=== PATIENT | male | born 1985 | race Caucasian/White ===

== ENCOUNTER 2016-06-10 17:43 | Inpatient (IN) | payer OTHER ==
[~2016-06-10] VITALS: Ht 180.3 cm; Wt 116.1 kg
[~2016-06-10 17:43] MED LIST: ARIP400P IM; BACT800T5 PO; CEPH500C3 PO; HYDR-3533 PO; IBUP800T23 PO; TRIH5 PO
[2016-06-10 17:50] VITALS: BP 179/99; PULSE 83; RESP 20; TEMP 97.8; O2SAT 93
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
[2016-06-10] MEDS ORDERED: OLANZapine IM 10 MG VIAL IM ONE (18:45)
[2016-06-10 22:20] VITALS: BP 143/84; PULSE 90; RESP 18; TEMP 97.6; O2SAT 99
[2016-06-11] MEDS ORDERED: LORazepam 2 MG/ML VIAL ONE
[2016-06-11] MEDS ORDERED: LORazepam 2 MG/ML VIAL IV ONE (01:00)
[2016-06-11] MEDS ORDERED: ZIPRASIDONE MESYLATE 20 MG VIAL IM ONE (01:00)
[2016-06-11] MEDS ORDERED: OLANZapine IM 10 MG VIAL IM STA (01:36)
[2016-06-11 02:13] VITALS: BP 158/67; PULSE 106; RESP 20; O2SAT 97
[2016-06-11 06:07] VITALS: BP 161/79; PULSE 104; RESP 19; O2SAT 97
[2016-06-11 22:12] VITALS: RESP 20
[2016-06-12 02:11] VITALS: RESP 20
--- NOTE | 2016-06-12 07:40 | HHI.HP ---
Provisional Diagnosis Admission Date Jun 11, 2016 at 17:36 [place] I. 1. Schizophrenia, paranoid type, severe acute exacerbation 2. History of polysubstance abuse Cal[place]oun II. Deferred Cal[place]oun V. GAF is 15 presently Certification of Person's Competence To Provide Express and Informed Consent I have personally examined Houston Dunn , a person being served at [facility] on, Jun 12, 2016 07:40. Express and informed consent means consent voluntarily given in writing, by a competent person, after sufficient explanation and disclosure of the subject matter involved to enable the person to make a knowing and willful decision without any element of force, fraud, deceit, duress, or other form of constraint or coercion. This person is 18 years of age or older, is not now known to be incompetent to consent to treatment with a guardian advocate, and does not have a health care surrogate or proxy currently making medical treatment decisions. I have found this person to be one of the following: [] Competent to provide express and informed consent, as defined above, for voluntary admission to this facility and is competent to provide express and informed consent for treatment. He/she has the consistent capacity to make well reasoned, willful, and knowing decisions concerning his or her medical or mental health treatment. The person fully and consistently understands the purpose of the admission for examination/placement and is fully capable of personally exercising all rights assured [place] [x] Incompetent to provide express and informed consent to voluntary admission, and this is incompetent to provide express and informed consent to treatment. The person must be transferred to involuntary status and a petition for a guardian advocate filed with the Circuit Court. [] Refusing to provide express and informed consent to voluntary admission but is competent to provide express and informed consent for treatment. The person must be discharged or transferred to involuntary status. Form shall be completed within 24 hours of a person's arrival at the receiving facility and filed in the clinical record of each person: 1. Admitted on a voluntary basis 2. Permitted to provide express and informed consent to his/her own treatment 3. Allowed to transfer from involuntary to voluntary status 4. Prior to permitting a person to consent to his or her own treatment after having been previously found incompetent to consent to treatment. History of Present Illness Capacity: Lacks Capacity HPI Mr. Dunn is a 30-year-old male with a history of paranoid schizophrenia and substance use issues who was brought into the emergency department under an ex parte order signed by Judge Kemp and sought by patient's mother, Ms. Conklin. I have reviewed the allegations in the ex parte order in some detail, and include allegations of erratic behavior, threatening behavior and unwillingness to participate in treatment. I have reviewed patient 's electronic medical record from here at [facility] fairly extensively including patient's hospitalizations under Dr. Chua and Dr. Mack. I've additionally reviewed Dr. Chua's outpatient treatment records as the patient followed in his clinic at least until January of last year. Patient seen and examined. Chart reviewed. Case discussed with nurse in the J- pod. Since being in the J-pod the patient has refused physical examination and threatened the ED provider who attempted to obtain one. He has refused laboratories. He has begun to refuse vital signs and the last set that we have are from yesterday morning. On my examination today, the patient is extremely irritable and threatening. He is quite paranoid and internally stimulated. He says that he is in the hospital because "I didn't follow my mom's rules." When I ask what rules he has transgressed, he lindsey, "I don't know, it's retarded as fuck!" I endeavor to discuss with him the specific allegations in the ex parte, but the patient is having none of it saying "I don't care" what is in the ex parte before launching into a series of expletives. Despite a lengthy history of mental illness, his insight into this issue is poor, and he says, "I' m not doing that [i.e. getting treatment for mental illness] because I don't want to and I don't have to." He does not verbalize any SI or HI but is quite threatening as I said and is unreliable to contract for safety in his present state. Psychiatric interview is limited because of his degree of psychiatric impairment. I did endeavor to obtain past psychiatric, family, chemical dependency and social history from the patient, but he is likely an unreliable historian. Past psychiatric history: Patient is in denial of having any sort of mental illness. He does admit that he has been hospitalized here in the past and also at [facility]. He reports 1 prior suicide attempt "years ago, but I'm better now." Family history: Patient denies any family history of mental illness. Chemical dependency history: Patient denies any abuse of drugs or alcohol, although he does have a history of substance use issues and I see that his urine toxicologies in the past have been positive for several different substances. Social history: Patient reports that he lives with his sister. He is single and has no children. I did endeavor to obtain further social history but at this point the patient becomes quite threatening and I have to conclude the interview for safety. I have obtained collateral information from patient's mother, Ms. Conklin, over the phone. She reports that the patient has recently been quite aggressive and "kicked in every door in his home." She maintains that when he is properly medicated "he's not like that." She alleges that he has been threatening to her and she is scared of him. She reports that once he is restarted on medications he rapidly improves. She does note that he has been in the involuntary outpatient commitment program in the past, but mother found this actively counterproductive as the patient would disrespect the county judge, get sent to halfway, assault someone there and end up in retirement. She notes that he is on SXN from an outpatient provider for maintenance treatment and says that this medication was sent in with the patient with the police, but nursing staff in the J-Pod inform me that this is not in with patient's belongings. Patient's mother is willing to act as patient's healthcare surrogate. I have a lengthy discussion with her in this capacity about patient's treatment plan. She notes that he has done well with Invega Sustenna in the past but that this has caused some EPS and ED. Abilify Maintena, his most recent medication, has apparently not been as effective as Invega and in some respects has made the patient worse. He has never been on Haldol Dec or Prolixin Dec so far as mother knows. After discussing patient's treatment options, we settle on resuming Invega Sustenna since this agent has proven efficacy in this patient and the side effects it does cause can be easily managed and it does not require oral supplementation in a patient unlikely to comply with such. I explain that the patient has been refusing labs, vitals and exam, and patient's mother agrees with temporarily restraining the patient if necessary to obtain these. Review of Systems ROS Limitations: Uncooperative, Psychotic, Poor Historian Other Unable to obtain; patient uncooperative. Past Psych History Psychological trauma history Unable to obtain, patient uncooperative Violence risk - others (6 mos) Significantly elevated. Patient has threatened violence in the ED and is quite irritable and psychotic. Violence risk - self (6 mos) Indeterminate. Substance Abuse History Drugs/Alcohol past 12 months Patient denies recent use but has a history of polysubstance abuse. Past Family Social History Coded Allergies: Benadryl (Verified Adverse Reaction, Unknown, 06/12/16) Per mother, patient has a paradoxical effect with Benadryl. Past Medical History See electronic medical record No Active Prescriptions or Reported Meds Unable to obtain from patient. Patient's Strengths (min. 2) In a monitored setting. Supportive mother. Physical Exam Patient has refused physical examination and threatened violence on provider attempting to perform one. He appears to be in no acute physical distress at the time of my evaluation. No overt signs of withdrawal noted. No other motoric abnormalities noted. Vital Signs Patient is refusing vitals. Most recent set of vitals obtained yesterday morning. Lab Results Patient is refusing laboratories Mental Status Examination Patient is in hospital gown. He is disheveled. He is awake and alert, although he does feign sleep at times, and is oriented to person and hospital. No abnormal motor movements noted. Speech is terse and angry. Language and fund of knowledge are difficult to assess given his degree of psychiatric decompensation. Mood and affect are restricted and dysphoric. Thought process perseverative on discharge, and I do suspect some degree of underlying thought disorder. Paranoia is present. The patient appears internally stimulated. He has threatened violence in the ED but has not described any suicidal ideation. Insight and judgment are presently poor. Assessment & Plan Problem List: (1) Schizophrenia ICD Code: F20.9 (2) History of substance abuse ICD Code: Z87.898 Assessment & Plan This is a 30-year-old male with psychiatric history as detailed above who presents under an ex parte order initiated by his mother. On my examination today, the patient is psychotic, irritable and threatening. He apparently has been nonadherent with his antipsychotic medications. Given his severe acute decompensation of his paranoid schizophrenia, the patient requires psychiatric hospitalization at this time for safety, observation and stabilization. Admit inpatient. Involuntary status. I completed first opinion. Consult for second opinion. Patient's mother to act as healthcare surrogate, and I have completed the paperwork for this. Request guardian advocate. I have instructed the nursing staff and the J-pod to endeavor to obtain laboratories from the patient voluntarily one more time. If he refuses, I have instructed them to temporarily restrain him for the purpose of obtaining these as well as vital signs and physical examination. Once laboratories have been obtained and resulted, we will begin active treatment of patient's illness. Given prior good response and tolerability to Invega Sustenna, I will plan to resume this agent at a dose appropriate to his renal and hepatic function. Ativan as needed for agitation, Cogentin as needed for EPS, Benadryl as needed for sleep. Monitor for any withdrawal. If SXN can be located (apparently did not arrive with him), will plan to resume this. Vitals every shift. Violent/assaultive and elopement precautions. Counselor to see. Disposition planning. Estimated length of stay: 7-9 days. Discharge Planning Pending psychiatric stabilization Request HC Surrog/Guard Advoc?: Yes Problem Qualifiers (1) Schizophrenia: Qualified Code: F20.0 - Paranoid schizophrenia Dipak Oliveira MD Jun 12, 2016 07:40
[2016-06-12] MEDS ORDERED: diphenhydrAMINE HCL 50 MG CAP PO PRN (08:00)
[2016-06-12] MEDS ORDERED: BENZTROPINE MESYLATE 1 MG TAB PO PRN (08:00)
[2016-06-12] MEDS ORDERED: BENZTROPINE MESYLATE 2 MG/2 ML VIAL IM PRN (08:00)
[2016-06-12] MEDS ORDERED: HALOPERIDOL LACTATE 5 MG/ML AMP ONE (09:50)
[2016-06-12] MEDS ORDERED: diphenhydrAMINE HCL 50 MG/ML VIAL IM ONE (10:00)
[2016-06-12] MEDS ORDERED: HALOPERIDOL LACTATE 5 MG/ML AMP IM ONE (10:00)
[2016-06-12] MEDS ORDERED: LORazepam 2 MG/ML VIAL IM ONE (10:00)
[2016-06-12 12:13] LABS: AMPHETAMINE, URINE NEG (NEG); BARBITURATES, URINE NEG (NEG); COCAINE, URINE NEG (NEG)
[2016-06-12 12:20] LABS: AUTOMATED NEUTROPHIL # 6.3 TH/MM3 (1.8-7.7); BASOPHIL % 0.3 % (0.0-2.0); EOSINOPHIL # 0.3 TH/MM3 (0-0.4); EOSINOPHIL % 2.4 % (0.0-4.0); HEMATOCRIT 55.2 % (39.0-51.0); HEMO FLAGS DIFF FINAL; LYMPH % 26.9 % (9.0-44.0); LYMPHOCYTE # 2.9 TH/MM3 (1.0-4.8); MEAN CELL VOLUME 86.6 FL (80.0-100.0); MEAN CORPUSCULAR HEMOGLOBIN 29.1 PG (27.0-34.0); MEAN CORPUSCULAR HGB CONC 33.6 % (32.0-36.0); MONO % 11.1 % (0.0-8.0); NEUT % 59.3 % (16.0-70.0); PLATELET COUNT 237 TH/MM3 (150-450); RED BLOOD COUNT 6.37 MIL/MM3 (4.50-5.90); RED CELL DISTRIBUTION WIDTH 13.7 % (11.6-17.2); WHITE BLOOD COUNT 10.6 TH/MM3 (4.0-11.0)
[2016-06-12 12:27] VITALS: BP 166/74; PULSE 108; RESP 24; TEMP 98.5; O2SAT 96
[2016-06-12 12:32] LABS: ALT (GPT) 30 U/L (12-78); ANION GAP 14 MEQ/L (5-15); AST (GOT) 25 U/L (15-37); BICARBONATE 24.3 MEQ/L (21.0-32.0); BLOOD UREA NITROGEN 12 MG/DL (7-18); CHLORIDE 104 MEQ/L (98-107); GLOMERULAR FILTRATION RATE 61 ML/MIN (>89); POTASSIUM 4.6 MEQ/L (3.5-5.1); SODIUM (NA) 142 MEQ/L (136-145)
[2016-06-12 12:34] LABS: ALKALINE PHOSPHATASE 119 U/L (45-117); TOTAL BILIRUBIN ADULT 0.3 MG/DL (0.2-1.0)
[2016-06-12 12:40] LABS: HDL CHOLESTEROL 31.5 MG/DL (40.0-60.0); LDL CHOLESTEROL 87 MG/DL (0-99)
--- NOTE | 2016-06-12 13:22 | PD ---
Physical Exam Date Seen by Provider: Jun 12, 2016 Time Seen by Provider: 13:19 Narrative 30-year-old male that presents to the ED here for evaluation of [place] act. Please refer to prior provider. I was asked by ED psych nurse to do a physical exam on the patient is apparently this was not done at the initial time of presentation secondary to patient's mental status. At this time patient was cooperative with me and did let me examine him. Patient already had blood work that was unremarkable. Patient was medically clear. GENERAL: SKIN: Warm and dry. HEAD: Atraumatic. Normocephalic. EYES: Pupils equal and round. No scleral icterus. No injection or drainage. ENT: No nasal bleeding or discharge. Mucous membranes pink and moist. Tongue is midline. No uvula deviation. NECK: Trachea midline. No JVD. CARDIOVASCULAR: Regular rate and rhythm. No murmurs, S3, S4. RESPIRATORY: No accessory muscle use. Clear to auscultation. Breath sounds equal bilaterally. GASTROINTESTINAL: Abdomen soft, non-tender, nondistended. Hepatic and splenic margins not palpable. MUSCULOSKELETAL: Extremities without clubbing, cyanosis, or edema. No obvious deformities. Full range of motion of the upper and lower extremities bilaterally. 2+ pulses bilaterally. NEUROLOGICAL: Awake and alert. No obvious cranial nerve deficits. Motor grossly within normal limits. Five out of 5 muscle strength in the arms and legs. Normal speech. PSYCHIATRIC: Appropriate mood and affect; insight and judgment normal. Data Data Last Documented VS Vital Signs Date Time Temp Pulse Resp B/P Pulse Ox O2 Delivery O2 Flow Rate FiO2 06/11/16 06:07 104 19 161/79 97 Room Air 06/10/16 22:20 97.6 Orders Psych Screen (06/10/16 18:01) Olanzapine Inj (Zyprexa Inj) (06/10/16 18:45) Lorazepam Inj (Ativan Inj) (06/11/16 00:00) Lorazepam Inj (Ativan Inj) (06/11/16 01:00) Olanzapine Inj (Zyprexa Inj) (06/11/16 01:36) Diet Regular Basic (06/11/16 Breakfast) Diet Regular Basic (06/11/16 Lunch) Diet Regular Basic (06/11/16 Dinner) Admit Order (Ed Use Only) (06/11/16 17:31) [facility] Medical Record Reviewed: Yes Supervised Visit with CHANG: No Narrative Course 30-year-old male that presents to the ED for evaluation of schizophrenia. I was asked by my ED psych nurse to do a physical evaluation as apparently he did not allow the previous provider. Patient did allow me to the physical exam. On physical exam patient appears to be no distress. Okay to be evaluated by psychiatry. Patient was medically clear. Labs were essentially unremarkable. Diagnosis Primary Impression: Schizophrenia Qualified Code: F20.0 - Paranoid schizophrenia Scripts No Active Prescriptions or Reported Meds Marcell Christie Jun 12, 2016 13:21
--- NOTE | 2016-06-12 13:42 | HHI.PYPN ---
Subjective Remarks History of Present Illness This note serves as a face to face intervention/ note for restraints HPI Mr. Dunn is a 30-year-old male with a history of paranoid schizophrenia and substance use issues who was brought into the emergency department under an ex parte order signed by Judge Kemp and sought by patient's mother, Ms. Conklin. Patient was seen and evaluated earlier today by Dr. Dipak Oliveira who recommended inpatient psychiatric hospitalization Patient has been refusing labs as well as all care. He has been ordered initial labs for admission. Patient became agitated and refusing laboratory work. He was attempting to barricade self in his room with the mattress and was threatening towards staff. Required restraints in order to prevent harm to self and others. Review of Systems ROS Limitations: Combative Objective Alert: Yes [place]: Person (ox4) Mood: Agitated Affect: Other (congruent ) Memory Intact: Comment (not tetseted) Hallucinations: Other (unable to assess) Delusions: Yes Delusion Type: Paranoid Suicidal: Ideation (unable to assess) Homicidal: Ideation (unable to assess) Insight/Judgement Poor. Impaired Labs Test 06/12/16 06/12/16 11:40 11:50 White Blood Count 10.6 TH/MM3 Red Blood Count 6.37 MIL/MM3 Hemoglobin 18.6 GM/DL Hematocrit 55.2 % Mean Corpuscular Volume 86.6 FL Mean Corpuscular Hemoglobin 29.1 PG Mean Corpuscular Hemoglobin 33.6 % Concent Red Cell Distribution Width 13.7 % Platelet Count 237 TH/MM3 Mean Platelet Volume 9.9 FL Neutrophils (%) (Auto) 59.3 % Lymphocytes (%) (Auto) 26.9 % Monocytes (%) (Auto) 11.1 % Eosinophils (%) (Auto) 2.4 % Basophils (%) (Auto) 0.3 % Neutrophils # (Auto) 6.3 TH/MM3 Lymphocytes # (Auto) 2.9 TH/MM3 Monocytes # (Auto) 1.2 TH/MM3 Eosinophils # (Auto) 0.3 TH/MM3 Basophils # (Auto) 0.0 TH/MM3 CBC Comment DIFF FINAL Differential Comment Sodium Level 142 MEQ/L Potassium Level 4.6 MEQ/L Chloride Level 104 MEQ/L Carbon Dioxide Level 24.3 MEQ/L Anion Gap 14 MEQ/L Blood Urea Nitrogen 12 MG/DL Creatinine 1.38 MG/DL Estimat Glomerular Filtration 61 ML/MIN Rate Random Glucose 130 MG/DL Calcium Level 10.0 MG/DL Total Bilirubin 0.3 MG/DL Aspartate Amino Transf 25 U/L (AST/SGOT) Alanine Aminotransferase 30 U/L (ALT/SGPT) Alkaline Phosphatase 119 U/L Total Protein 8.4 GM/DL Albumin 4.1 GM/DL Triglycerides Level 362 MG/DL Cholesterol Level 191 MG/DL LDL Cholesterol 87 MG/DL HDL Cholesterol 31.5 MG/DL Cholesterol/HDL Ratio 6.06 RATIO Thyroid Stimulating Hormone 1.630 uIU/ML 3rd Gen Ethyl Alcohol Level 5 MG/DL Urine Opiates Screen NEG Urine Barbiturates Screen NEG Urine Amphetamines Screen NEG Urine Benzodiazepines Screen NEG Urine Cocaine Screen NEG Urine Cannabinoids Screen NEG Vitals/IOs Vital Signs Date Time Temp Pulse Resp B/P Pulse Ox O2 Delivery O2 Flow Rate FiO2 06/12/16 12:27 98.5 108 24 166/74 96 06/12/16 02:11 Room Air Assessment & Plan Problem List: (1) Schizophrenia Assessment & Plan: at this time patient presents danger to self or others. ICD Code: F20.9 (2) History of substance abuse Assessment & Plan: Patient at this time requires restraints to prevent injury to self or others. ICD Code: Z87.898 Assessment & Plan Estimated LOS: days Justification for Cont. Inpt. Lack of control, psychosis, threat and danger to others Request HC Surrog/Guard Advoc?: Yes Problem Qualifiers (1) Schizophrenia: Qualified Code: F20.0 - Paranoid schizophrenia Shannon Sanderson Jun 12, 2016 13:42
[2016-06-12 13:52] VITALS: BP 137/97; PULSE 106; RESP 20; O2SAT 97
[2016-06-12] MEDS ORDERED: MAGNESIUM HYDROXIDE SUSP 30 ML CUP PO PRN (15:00)
[2016-06-12] MEDS ORDERED: PALIPERIDONE PALMITATE 156 MG/ML SYRINGE IM ONE (15:00)
[2016-06-12] MEDS ORDERED: ALUMINUM/MAGNESIUM/SIMETH 30 ML CUP PO PRN (15:00)
[2016-06-12] MEDS ORDERED: ACETAMINOPHEN 325 MG TAB PO PRN (15:00)
[2016-06-12] MEDS ORDERED: HALOPERIDOL LACTATE 5 MG/ML AMP IM PRN (15:00)
[2016-06-12] MEDS: LORazepam 2 MG/ML VIAL IM PRN (15:56)
[2016-06-12 15:59] VITALS: BP 148/76; PULSE 120; RESP 16; TEMP 98.8; O2SAT 96
[2016-06-12 16:04] LABS: HEMOGLOBIN A1a 1.3 %; HEMOGLOBIN Ao 84.7 %; HEMOGLOBIN LA1C 2.2 %; HEMOGLOBIN P3 3.7 %
[2016-06-12 16:05] VITALS: BP 148/76; PULSE 110; RESP 16; TEMP 98.8
[2016-06-12] MEDS: LORazepam 2 MG TAB PO PRN (20:36)
[2016-06-12] MEDS: HALOPERIDOL 5 MG TAB PO PRN (20:36)
[2016-06-12] MEDS: OXYMETAZOLINE HCL 0.05% 15 ML NASAL SPRAY NASAL SCH (23:00)
[2016-06-13] MEDS: LORazepam 2 MG/ML VIAL IM PRN (00:49)
[2016-06-13 06:03] VITALS: BP 149/86; PULSE 109; RESP 16; TEMP 97.9; O2SAT 95
[2016-06-13 07:36] LABS: BICARBONATE 28.3 MEQ/L (21.0-32.0); POTASSIUM 4.2 MEQ/L (3.5-5.1)
[2016-06-13] MEDS: NICOTINE 21 MG/24 HR PATCH T-DERMAL SCH (09:00)
[2016-06-13] MEDS: REMOVE OLD PATCH T-DERMAL SCH (09:00)
[2016-06-13] MEDS: OXYMETAZOLINE HCL 0.05% 15 ML NASAL SPRAY NASAL SCH (11:00)
[2016-06-13] MEDS: LORazepam 2 MG TAB PO PRN (13:09)
--- NOTE | 2016-06-13 15:00 | HHI.PYPN ---
Subjective Remarks Patient was seen and case discussed with nursing. Patient has poor insight into his admission. He is less irritable compared to his admission. Mood is somewhat elated laughing at inappropriate times. Denies psychotic symptoms, and minimizes history. This tolerating the injection well is behaving well today on the unit. Blood pressure heart rate slightly elevated Objective Alert: Yes [place]: Person (ox4) Mood: Agitated Affect: Other (congruent ) Memory Intact: Comment (not tetseted) Hallucinations: Other (unable to assess) Delusions: Yes Delusion Type: Paranoid Suicidal: Ideation (unable to assess) Homicidal: Ideation (unable to assess) Insight/Judgement Poor Labs Test 06/13/16 06:40 Sodium Level 140 MEQ/L Potassium Level 4.2 MEQ/L Chloride Level 104 MEQ/L Carbon Dioxide Level 28.3 MEQ/L Anion Gap 8 MEQ/L Blood Urea Nitrogen 14 MG/DL Creatinine 1.24 MG/DL Estimat Glomerular Filtration 68 ML/MIN Rate Random Glucose 108 MG/DL Calcium Level 9.4 MG/DL Vitals/IOs Vital Signs Date Time Temp Pulse Resp B/P Pulse Ox O2 Delivery O2 Flow Rate FiO2 06/13/16 06:03 97.9 109 16 149/86 95 06/12/16 13:52 Room Air Assessment & Plan Problem List: (1) Schizophrenia ICD Code: F20.9 (2) History of substance abuse ICD Code: Z87.898 Assessment & Plan Consult medicine for hypertension Justification for Cont. Inpt. Patient will decompensate in a less restrictive setting Request HC Surrog/Guard Advoc?: Yes Problem Qualifiers (1) Schizophrenia: Qualified Code: F20.0 - Paranoid schizophrenia Varghese Renee DO Jun 13, 2016 15:00
[2016-06-13] MEDS: HALOPERIDOL 5 MG TAB PO PRN (16:23)
[2016-06-13] MEDS ORDERED: PILL SPLITTER OTHER PRN (18:00)
[2016-06-13] MEDS: amLODIPine BESYLATE 5 MG TAB PO SCH (18:00)
[2016-06-13 19:41] VITALS: BP 130/90; PULSE 110; RESP 18; TEMP 97.9; O2SAT 97
[2016-06-13] MEDS: traZODone HCL 50 MG TAB PO PRN (21:01)
[2016-06-14 05:36] VITALS: BP 147/80; PULSE 80; RESP 20; TEMP 98.1; O2SAT 94
[2016-06-14] MEDS: NICOTINE 21 MG/24 HR PATCH T-DERMAL SCH (09:00)
[2016-06-14] MEDS ORDERED: LISINOPRIL 10 MG TAB PO SCH (09:00)
[2016-06-14] MEDS: REMOVE OLD PATCH T-DERMAL SCH (09:00)
[2016-06-14] MEDS: LORazepam 2 MG TAB PO PRN (09:04)
[2016-06-14] MEDS: amLODIPine BESYLATE 5 MG TAB PO SCH (09:04)
--- NOTE | 2016-06-14 11:10 | PD.CONS ---
HPI Service [facility] Consult Requested By psychiatric services Reason for Consult HTN Primary Care Physician Non-Staff Diagnoses: History of Present Illness This is a 30-year-old male patient who denies prior medical history. Patient is currently in inpatient psychiatric center we have been consulted for assistance with management of hypertension. Patient reports he does not recall having noted problem with high blood pressure in the past and does not recall being on blood pressure medication. At time of evaluation patient appears calm. In review of prior charting patient has been agitated disruptive and in physical restraints at times. Patient denies headaches or fevers chills nausea vomiting shortness of breath chest pain. Patient reports he feels well and is asking when he can be discharged. Review of Systems Except as stated in HPI: all other systems reviewed are Neg Past Family Social History Allergies: Coded Allergies: Benadryl (Verified Adverse Reaction, Unknown, 06/12/16) Per mother, patient has a paradoxical effect with Benadryl. Past Medical History Denies prior medical history including diabetes hypertension hyperlipidemia or cancer Past Surgical History Surgical repair of bowels as a baby, appendectomy Reported Medications Denies taking medications prior to admission Active Ordered Medications Current Medications Medications (Trade) Dose Ordered Sig/Humberto Route Start Time Stop Time Status Last Admin (Ativan Inj) 2 mg Q6H PRN IM 06/12/16 08:00 06/13/16 00:49 (Ativan) 2 mg Q6H PRN PO 06/12/16 08:00 06/14/16 09:04 (Cogentin) 1 mg Q12HR PRN PO 06/12/16 08:00 (Cogentin Inj) 1 mg Q12HR PRN IM 06/12/16 08:00 (Tylenol) 650 mg Q4H PRN PO 06/12/16 15:00 (Milk Of Magnesia Liq) 30 ml DAILY PRN PO 06/12/16 15:00 (Mag-Al Plus Susp Liq) 30 ml Q6H PRN PO 06/12/16 15:00 (Habitrol 21 Mg Patch.24 Hr) 1 patch DAILY T-DERMAL 06/13/16 09:00 06/14/16 09:00 (Desyrel) 50 mg HS PRN PO 06/12/16 21:00 06/13/16 21:01 Miscellaneous Information 1 DAILY T-DERMAL 06/13/16 09:00 (Haldol) 5 mg Q6H PRN PO 06/12/16 15:00 06/13/16 16:23 (Haldol Inj) 5 mg Q6H PRN IM 06/12/16 15:00 06/12/16 15:55 (Norvasc) 2.5 mg DAILY PO 06/13/16 18:00 06/14/16 09:04 (Pill Splitter) 1 ea UNSCH PRN OTHER 06/13/16 18:00 Family History Grandmother had heart disease Social History Patient reports he smokes between 2-3 packs per day Denies EtOH use Reports illicit drug use of Roxicodone and Dilaudid Physical Exam Vital Signs Vital Signs Date Time Temp Pulse Resp B/P Pulse Ox O2 Delivery O2 Flow Rate FiO2 06/14/16 05:36 98.1 80 20 147/80 94 06/13/16 19:41 97.9 110 18 130/90 97 Physical Exam GENERAL: This is a well-nourished, well-developed patient, in no apparent distress. SKIN: No rashes, ecchymoses or lesions. Cool and dry. HEAD: Atraumatic. Normocephalic. No temporal or scalp tenderness. EYES: Extraocular motions intact. No scleral icterus. No injection or drainage. CARDIOVASCULAR: Regular rate and rhythm without murmurs, gallops, or rubs. RESPIRATORY: Clear to auscultation. Breath sounds equal bilaterally. No wheezes , rales, or rhonchi. GASTROINTESTINAL: Abdomen soft, non-tender, nondistended. MUSCULOSKELETAL: Extremities without clubbing, cyanosis, or edema. No joint tenderness, effusion, or edema noted. No calf tenderness. Negative Homans sign bilaterally. NEUROLOGICAL: Awake and alert. No focal deficits appreciated. Motor and sensory grossly within normal limits. Five out of 5 muscle strength in all muscle groups. Normal speech. Assessment and Plan Assessment and Plan This is a 30-year-old male patient who denies prior medical history. Patient is currently in inpatient psychiatric center we have been consulted for assistance with management of hypertension. Patient reports he does not recall having noted problem with high blood pressure in the past and does not recall being on blood pressure medication. At time of evaluation patient appears calm. In review of prior charting patient has been agitated disruptive and in physical restraints at times. Elevated blood pressure- be related to agitation and anxiety or withdrawal DC Afrin as this can contribute to elevated blood pressure Will start low-dose Norvasc 2.5 mg daily and continue to monitor We'll add clonidine as needed for systolic blood pressure greater than 180 Continue to monitor blood pressure trend Schizophrenia managed per psychiatric team Polysubstance abuse patient counseled and encouraged to abstain Nicotine patch DVT prophylaxis patient is ambulatory is low risk Discussed plan of care with patient and nursing Written by Melissa Baumann, acting as scribe for Dr. Navarro on 06/14/16 at 11:10. Attending Statement The documentation accurately reflects the work performed [id number] by me on at 11:10. Melissa aBumann Jun 14, 2016 11:10 Govind Sam MD Jun 18, 2016 22:56
[2016-06-14] MEDS ORDERED: cloNIDine HCL 0.1 MG TAB PO PRN (11:15)
[2016-06-14] MEDS: HALOPERIDOL 5 MG TAB PO PRN (13:53)
--- NOTE | 2016-06-14 16:23 | HHI.PYPN ---
Subjective Remarks Patient was seen and case discussed with nursing. Patient is not agitated or aggressive today. Largely seclusive to self. Some grandiose delusions of establishing a new way of computing and hard drives. So he is working on the new electrical car and describes cars Jess that run on solar power. Denies auditory or visual hallucinations. His compliant with his medications Objective Alert: Yes [place]: Person (ox4) Mood: Agitated Affect: Other (congruent ) Memory Intact: Comment (not tetseted) Hallucinations: Other (unable to assess) Delusions: Yes Delusion Type: Paranoid Suicidal: Ideation (unable to assess) Homicidal: Ideation (unable to assess) Insight/Judgement Poor Vitals/IOs Vital Signs Date Time Temp Pulse Resp B/P Pulse Ox O2 Delivery O2 Flow Rate FiO2 06/14/16 05:36 98.1 80 20 147/80 94 06/12/16 13:52 Room Air Assessment & Plan Problem List: (1) Schizophrenia ICD Code: F20.9 (2) History of substance abuse ICD Code: Z87.898 Assessment & Plan Continue current treatment plan Justification for Cont. Inpt. Patient will decompensate in a less restrictive setting Request HC Surrog/Guard Advoc?: Yes Problem Qualifiers (1) Schizophrenia: Qualified Code: F20.0 - Paranoid schizophrenia Varghese Renee DO Jun 14, 2016 16:23
[2016-06-14 17:07] VITALS: BP 148/90; PULSE 108; RESP 18; TEMP 98; O2SAT 98
[2016-06-15] MEDS: traZODone HCL 50 MG TAB PO PRN (00:12)
[2016-06-15] MEDS: LORazepam 2 MG TAB PO PRN (03:10)
[2016-06-15 05:54] VITALS: BP 159/88; PULSE 109; RESP 18; TEMP 97.4; O2SAT 97
[2016-06-15] MEDS: amLODIPine BESYLATE 5 MG TAB PO SCH (08:11)
[2016-06-15] MEDS: REMOVE OLD PATCH T-DERMAL SCH (08:14)
[2016-06-15] MEDS: NICOTINE 21 MG/24 HR PATCH T-DERMAL SCH (08:14)
[2016-06-15] MEDS ORDERED: amLODIPine BESYLATE 5 MG TAB PO SCH (09:00)
[2016-06-15] MEDS ORDERED: amLODIPine BESYLATE 5 MG TAB PO ONE (09:15)
--- NOTE | 2016-06-15 09:51 | HHI.PYPN ---
Subjective Remarks Patient seen and examined with nurse. Chart reviewed. Case discussed with nursing staff who reports patient has been no behavioral problem overnight although he did sleep fairly poorly. On my examination today, the patient is considerably calmer and more interactive than when I saw him before the weekend. He says that he is feeling okay and is pleased to be back on medications but notes "one day, I gotta stop these meds." He notes, "I don't hear voices that much." No CAH reported. He rambles a little about drinking blood. He agrees sleep was somewhat poor overnight and says that he sometimes uses Seroquel 100mg qHS for this. He does report a history of ANTOINE but is reportedly non-adherent with CPAP outpatient. Denies side effects from Invega Sustenna or other medications. Review of Systems ROS Limitations: Poor Historian Other No physical complaints today. Objective Alert: Yes [place]: Person (O x 3) Mood: Other (Calmer) Affect: Blunted Memory Intact: Comment (Not formally assessed) Hallucinations: Other (unable to assess) Delusions: Yes Delusion Type: Paranoid (lessening) Suicidal: Ideation (No SI) Homicidal: Ideation (No HI) Insight/Judgement Poor Remarks Thought process somewhat disorganized but more linear today versus at admission. Speech within normal limits for rate, tone and volume. No hand tremor, no dystonia, no dyskinesia, no other motoric abnormalities noted. No signs of withdrawal noted. Grooming and hygiene are fair. Labs Labs reviewed. GFR only marginally improved. Extended urine toxicology remains pending. Vitals/IOs Vital Signs Date Time Temp Pulse Resp B/P Pulse Ox O2 Delivery O2 Flow Rate FiO2 06/15/16 05:54 97.4 109 18 159/88 97 06/12/16 13:52 Room Air Assessment & Plan Problem List: (1) Schizophrenia ICD Code: F20.9 (2) History of substance abuse ICD Code: Z87.898 Assessment & Plan I will order booster dose of Invega Sustenna for tomorrow, once again renally dosed in light of mildly decreased GFR. I will discontinue trazodone and replace with Seroquel 100 mg at bedtime as needed for insomnia. Continue other medications and care as ordered. I have encouraged the patient to follow-up with his sleep medicine physician on discharge and resume CPAP, with which he reportedly had been non-adherent prior to admission. Justification for Cont. Inpt. Impairment in reality construction. Impairment in social function. High risk for decompensation in a lower level of care at this time. Discharge Planning Pending psychiatric stabilization. I have asked the counselor to reach out the patient's family for an update. Request HC Surrog/Guard Advoc?: Yes Problem Qualifiers (1) Schizophrenia: Qualified Code: F20.0 - Paranoid schizophrenia Dipak Oliveira MD Jun 15, 2016 09:51
--- NOTE | 2016-06-15 14:12 | PD.CONS ---
Provisional Diagnosis Admission Date Jun 11, 2016 at 17:36 Bement I. 1. Schizophrenia, paranoid type, severe acute exacerbation 2. History of polysubstance abuse Bement II. Deferred Bement V. GAF is 15 presently History of Present Illness Service Psychiatry Consult Requested By Dr. Ita cash Reason for Consult Second opinion was accomplished on this patient on June 12, 2016. Primary Care Physician Non-Staff HPI Mr. Dunn is a 30-year-old male with a history of paranoid schizophrenia and substance use issues who was brought into the emergency department under an ex parte order signed by Judge Kemp and sought by patient's mother, Ms. Conklin. I have reviewed the allegations in the ex parte order in some detail, and include allegations of erratic behavior, threatening behavior and unwillingness to participate in treatment. I have reviewed patient 's electronic medical record from here at [facility] fairly extensively including patient's hospitalizations under Dr. Chua and Dr. Mack. I've additionally reviewed Dr. Chua's outpatient treatment records as the patient followed in his clinic at least until January of last year. Patient seen and examined. Chart reviewed. Case discussed with nurse in the J- pod. Since being in the J-pod the patient has refused physical examination and threatened the ED provider who attempted to obtain one. He has refused laboratories. He has begun to refuse vital signs and the last set that we have are from yesterday morning. On my examination today, the patient is extremely irritable and threatening. He is quite paranoid and internally stimulated. He says that he is in the hospital because "I didn't follow my mom's rules." When I ask what rules he has transgressed, he lindsey, "I don't know, it's retarded as fuck!" I endeavor to discuss with him the specific allegations in the ex parte, but the patient is having none of it saying "I don't care" what is in the ex parte before launching into a series of expletives. Despite a lengthy history of mental illness, his insight into this issue is poor, and he says, "I' m not doing that [i.e. getting treatment for mental illness] because I don't want to and I don't have to." He does not verbalize any SI or HI but is quite threatening as I said and is unreliable to contract for safety in his present state. Psychiatric interview is limited because of his degree of psychiatric impairment. I did endeavor to obtain past psychiatric, family, chemical dependency and social history from the patient, but he is likely an unreliable historian. Past psychiatric history: Patient is in denial of having any sort of mental illness. He does admit that he has been hospitalized here in the past and also at [facility]. He reports 1 prior suicide attempt "years ago, but I'm better now." Family history: Patient denies any family history of mental illness. Chemical dependency history: Patient denies any abuse of drugs or alcohol, although he does have a history of substance use issues and I see that his urine toxicologies in the past have been positive for several different substances. Social history: Patient reports that he lives with his sister. He is single and has no children. I did endeavor to obtain further social history but at this point the patient becomes quite threatening and I have to conclude the interview for safety. I have obtained collateral information from patient's mother, Ms. Conklin, over the phone. She reports that the patient has recently been quite aggressive and "kicked in every door in his home." She maintains that when he is properly medicated "he's not like that." She alleges that he has been threatening to her and she is scared of him. She reports that once he is restarted on medications he rapidly improves. She does note that he has been in the involuntary outpatient commitment program in the past, but mother found this actively counterproductive as the patient would disrespect the airplane pilot commercial, get sent to longterm, assault someone there and end up in senior living. She notes that he is on SXN from an outpatient provider for maintenance treatment and says that this medication was sent in with the patient with the police, but nursing staff in the J-Pod inform me that this is not in with patient's belongings. Patient's mother is willing to act as patient's healthcare surrogate. I have a lengthy discussion with her in this capacity about patient's treatment plan. She notes that he has done well with Invega Sustenna in the past but that this has caused some EPS and ED. Abilify Maintena, his most recent medication, has apparently not been as effective as Invega and in some respects has made the patient worse. He has never been on Haldol Dec or Prolixin Dec so far as mother knows. After discussing patient's treatment options, we settle on resuming Invega Sustenna since this agent has proven efficacy in this patient and the side effects it does cause can be easily managed and it does not require oral supplementation in a patient unlikely to comply with such. I explain that the patient has been refusing labs, vitals and exam, and patient's mother agrees with temporarily restraining the patient if necessary to obtain these. Review of Systems ROS Limitations: Clinical Condition Except as stated in HPI: all other systems reviewed are Neg Past Family Social History Coded Allergies: Benadryl (Verified Adverse Reaction, Unknown, 06/12/16) Per mother, patient has a paradoxical effect with Benadryl. No Active Prescriptions or Reported Meds Current Medications Medications (Trade) Dose Ordered Sig/Humberto Route Start Time Stop Time Status Last Admin (Ativan Inj) 2 mg Q6H PRN IM 06/12/16 08:00 06/13/16 00:49 (Ativan) 2 mg Q6H PRN PO 06/12/16 08:00 06/15/16 03:10 (Cogentin) 1 mg Q12HR PRN PO 06/12/16 08:00 (Cogentin Inj) 1 mg Q12HR PRN IM 06/12/16 08:00 (Tylenol) 650 mg Q4H PRN PO 06/12/16 15:00 (Milk Of Magnesia Liq) 30 ml DAILY PRN PO 06/12/16 15:00 (Mag-Al Plus Susp Liq) 30 ml Q6H PRN PO 06/12/16 15:00 (Habitrol 21 Mg Patch.24 Hr) 1 patch DAILY T-DERMAL 06/13/16 09:00 06/15/16 08:14 Miscellaneous Information 1 DAILY T-DERMAL 06/13/16 09:00 06/15/16 08:14 (Haldol) 5 mg Q6H PRN PO 06/12/16 15:00 06/14/16 13:53 (Haldol Inj) 5 mg Q6H PRN IM 06/12/16 15:00 06/12/16 15:55 (Pill Splitter) 1 ea UNSCH PRN OTHER 06/13/16 18:00 (Catapres) 0.1 mg Q6H PRN PO 06/14/16 11:15 (Norvasc) 5 mg DAILY PO 06/16/16 09:00 (Invega Sustenna Inj) 117 mg ONCE ONCE IM 06/16/16 09:00 06/16/16 09:01 (SEROquel) 100 mg HS PRN PO 06/15/16 10:00 Patient's Strengths (min. 2) In a monitored setting. Supportive mother. Physical Exam Vital Signs Vital Signs Date Time Temp Pulse Resp B/P Pulse Ox O2 Delivery O2 Flow Rate FiO2 06/15/16 05:54 97.4 109 18 159/88 97 06/12/16 13:52 Room Air Mental Status Examination Speech: Unremarkable Orientation: x3 Memory: Unremarkable Thought Process: Loose Association Thought Content: Bizarre thinking Hallucination Type: None Attention and Concentration: Easily Distracted Suicidal Ideation: No Previous Suicide Attempts: No Homicidal Ideation: No Previous Homicide Attempts: No Insight: Fair Judgement: WNL Affect: Good Mood: Appropriate Motor Activity: Normal gait Assessment & Plan Problem List: (1) Schizophrenia ICD Code: F20.9 (2) History of substance abuse ICD Code: Z87.898 Assessment & Plan Estimated LOS: days this physician does not find the patient is competent to provide expressive informed consent regarding his treatment. Therefore the [place] act was cosigned. Request HC Surrog/Guard Advoc?: Yes Problem Qualifiers (1) Schizophrenia: Qualified Code: F20.0 - Paranoid schizophrenia Vinh Flores MD Jun 15, 2016 14:12
[2016-06-15 15:31] VITALS: BP 181/89; PULSE 102; RESP 18; TEMP 98.8; O2SAT 99
[2016-06-15] MEDS: HALOPERIDOL 5 MG TAB PO PRN (18:40)
[2016-06-15] MEDS: QUEtiapine FUMARATE 100 MG TAB PO PRN (20:45)
[2016-06-16 05:45] VITALS: BP 162/85; PULSE 98; RESP 17; TEMP 98.1; O2SAT 97
[2016-06-16] MEDS ORDERED: amLODIPine BESYLATE 5 MG TAB PO SCH (09:00)
[2016-06-16] MEDS: REMOVE OLD PATCH T-DERMAL SCH (09:00)
[2016-06-16] MEDS ORDERED: PALIPERIDONE PALMITATE 117 MG/0.75 ML SYR IM ONE (09:00)
[2016-06-16] MEDS: NICOTINE 21 MG/24 HR PATCH T-DERMAL SCH (09:11)
--- NOTE | 2016-06-16 09:31 | HHI.PYPN ---
Subjective Remarks Patient seen and examined with counselor. Chart reviewed. Patient received one PRN dose of PO Haldol and Ativan yesterday. Case discussed with counselor, nursing staff and recreation therapist in treatment team. Per nursing staff, patient is somewhat medication seeking for Ativan but otherwise has been no behavioral problem. Counselor has spoken with mother who reportedly would like the patient home tomorrow. She apparently asked whether the patient might be put on a stimulant. On my examination today, patient is calm and pleasant. His thought process is linear and logical. He denies any SI, HI or AVH. No flip delusional material. He says that his main goal of being in the hospital is to get on meds. Denies side effects from medications. Slept somewhat better last night with Seroquel. Review of Systems Other No physical complaints today. Objective Alert: Yes [place]: Person (Once again O x 3) Mood: Calm Affect: Blunted Memory Intact: Comment (Not formally assessed) Hallucinations: Other (Denies AVH) Delusions: No Delusion Type: Other (No flip delusions) Suicidal: Ideation (Denies suicidal ideation) Homicidal: Ideation (Denies homicidal ideation) Insight/Judgement Poor Remarks Thought process linear today. Speech within normal limits for rate, tone and volume. No hand tremor, no dystonia, no dyskinesia noted. Grooming and hygiene are fair. Labs Labs reviewed. No new labs. Extended urine toxicology still pending. Vitals/IOs Vital Signs Date Time Temp Pulse Resp B/P Pulse Ox O2 Delivery O2 Flow Rate FiO2 06/16/16 05:45 98.1 98 17 162/85 97 06/12/16 13:52 Room Air Assessment & Plan Problem List: (1) Schizophrenia ICD Code: F20.9 (2) History of substance abuse ICD Code: Z87.898 Assessment & Plan Administer booster dose of Invega Sustenna, renally dosed, today. I think stimulants would be a uniquely bad choice in this patient with a psychotic disorder and also a history of substance use disorder. He does not describe a focus/concentration difficulty to me, in any event. I will taper his Ativan and discontinue his Haldol PRN. I would like to see him in good behavioral control without Haldol PRNs and minimal Ativan PRNs x 24 hours before we contemplate discharge. Continue other medications and care as ordered. Justification for Cont. Inpt. Monitoring for impairments in safety. Discharge Planning Monitor overnight. We could consider discharge tomorrow into parents care if above criteria are met and patient continues to do well. Request HC Surrog/Guard Advoc?: Yes Problem Qualifiers (1) Schizophrenia: Qualified Code: F20.0 - Paranoid schizophrenia Dipak Oliveira MD Jun 16, 2016 09:31
[2016-06-16] MEDS ORDERED: LORazepam 1 MG TAB PO PRN (14:00)
[2016-06-16] MEDS ORDERED: LORazepam 2 MG/ML VIAL IM PRN (14:00)
[2016-06-16 18:13] VITALS: BP 156/88; PULSE 92; RESP 18; TEMP 98; O2SAT 97
[2016-06-16] MEDS: QUEtiapine FUMARATE 100 MG TAB PO PRN (20:30)
[2016-06-17 05:47] VITALS: BP 150/76; PULSE 96; RESP 18; TEMP 97.7; O2SAT 98
[2016-06-17] MEDS: REMOVE OLD PATCH T-DERMAL SCH (09:00)
[2016-06-17] MEDS: NICOTINE 21 MG/24 HR PATCH T-DERMAL SCH (09:01)
[2016-06-17] MEDS ORDERED: QUET1TAB8 PO (09:38)
[2016-06-17] MEDS ORDERED: PALI117P IM (09:38)
[2016-06-17] MEDS ORDERED: AMLO10 PO (09:38)
[2016-06-17] MEDS ORDERED: BENZ1TAB PO (09:38)
--- NOTE | 2016-06-17 09:38 | HHI.DS ---
Psychiatry Discharge Summary Inpatient Psychiatric care?: Yes Advance Directive: No Reason Not Provided: refuses Mental Health AdvanceDirective: No Health Care Proxy: No Admission Admission Date Jun 11, 2016 at 17:36 Admission Diagnosis: (1) Schizophrenia ICD Code: F20.9 (2) History of substance abuse ICD Code: Z87.898 Brief History Mr. Dunn is a 30-year-old male with a history of paranoid schizophrenia and substance use issues who was brought into the emergency department under an ex parte order signed by Judge Kemp and sought by patient's mother, Ms. Conklin. I have reviewed the allegations in the ex parte order in some detail, and include allegations of erratic behavior, threatening behavior and unwillingness to participate in treatment. I have reviewed patient 's electronic medical record from here at [facility] fairly extensively including patient's hospitalizations under Dr. Chua and Dr. Mack. I've additionally reviewed Dr. Chua's outpatient treatment records as the patient followed in his clinic at least until January of last year. Patient seen and examined. Chart reviewed. Case discussed with nurse in the J- pod. Since being in the J-[facility] the patient has refused physical examination and threatened the ED provider who attempted to obtain one. He has refused laboratories. He has begun to refuse vital signs and the last set that we have are from yesterday morning. On my examination today, the patient is extremely irritable and threatening. He is quite paranoid and internally stimulated. He says that he is in the hospital because "I didn't follow my mom's rules." When I ask what rules he has transgressed, he lindsey, "I don't know, it's retarded as fuck!" I endeavor to discuss with him the specific allegations in the ex parte, but the patient is having none of it saying "I don't care" what is in the ex parte before launching into a series of expletives. Despite a lengthy history of mental illness, his insight into this issue is poor, and he says, "I' m not doing that [i.e. getting treatment for mental illness] because I don't want to and I don't have to." He does not verbalize any SI or HI but is quite threatening as I said and is unreliable to contract for safety in his present state. Psychiatric interview is limited because of his degree of psychiatric impairment. I did endeavor to obtain past psychiatric, family, chemical dependency and social history from the patient, but he is likely an unreliable historian. Past psychiatric history: Patient is in denial of having any sort of mental illness. He does admit that he has been hospitalized here in the past and also at [facility]. He reports 1 prior suicide attempt "years ago, but I'm better now." Family history: Patient denies any family history of mental illness. Chemical dependency history: Patient denies any abuse of drugs or alcohol, although he does have a history of substance use issues and I see that his urine toxicologies in the past have been positive for several different substances. Social history: Patient reports that he lives with his sister. He is single and has no children. I did endeavor to obtain further social history but at this point the patient becomes quite threatening and I have to conclude the interview for safety. I have obtained collateral information from patient's mother, Ms. Conklin, over the phone. She reports that the patient has recently been quite aggressive and "kicked in every door in his home." She maintains that when he is properly medicated "he's not like that." She alleges that he has been threatening to her and she is scared of him. She reports that once he is restarted on medications he rapidly improves. She does note that he has been in the involuntary outpatient commitment program in the past, but mother found this actively counterproductive as the patient would disrespect the accounts receivable analyst, get sent to shelter, assault someone there and end up in skilled nursing. She notes that he is on SXN from an outpatient provider for maintenance treatment and says that this medication was sent in with the patient with the police, but nursing staff in the [facility] inform me that this is not in with patient's belongings. Patient's mother is willing to act as patient's healthcare surrogate. I have a lengthy discussion with her in this capacity about patient's treatment plan. She notes that he has done well with Invega Sustenna in the past but that this has caused some EPS and ED. Abilify Maintena, his most recent medication, has apparently not been as effective as Invega and in some respects has made the patient worse. He has never been on Haldol Dec or Prolixin Dec so far as mother knows. After discussing patient's treatment options, we settle on resuming Invega Sustenna since this agent has proven efficacy in this patient and the side effects it does cause can be easily managed and it does not require oral supplementation in a patient unlikely to comply with such. I explain that the patient has been refusing labs, vitals and exam, and patient's mother agrees with temporarily restraining the patient if necessary to obtain these. Tobacco Use In Past 30 Days: 5 or More Cigarettes/Day Alcohol Use: 2-3 Times Per Week Hospital Course Patient was admitted to a locked, inpatient psychiatric unit. A general medical consultation was obtained. Appropriate precautions were in place throughout patient's hospital stay. Patient was seen and examined daily on the unit by psychiatry and also visited by counselor. Medications were adjusted. Patient was started on long-acting injectable Invega Sustenna, renally dosed given his decreased GFR. Seroquel was added as needed for sleep. Patient had marked improvement in his presenting psychiatric symptomatology during his inpatient psychiatric hospital stay. Where at admission he had been quite agitated and threatening, closer to discharge he is quite calm and pleasant on examination. There was no evidence of any suicidality or homicidality on the inpatient unit. Patient's behavior improved significantly with the benefit of medication treatment. His participation in groups has been limited but he has been eating well and his sleep improved with the benefit of Seroquel. Counselor has obtained collateral from patient's mother to the effect that she feels that the patient is improved and is requesting that he be discharged home. On the day of discharge: Patient seen and examined with nurseQiana. Chart reviewed. Case discussed with nursing staff who reports that he is doing well on the unit and has been no behavioral problem. He has required no behavioral PRNs overnight. On my examination today, the patient is once again calm and pleasant. He is requesting discharge from the inpatient psychiatric unit today. He is looking forward to getting back to work. Mood is stable and I can elicit no depressive or hypomanic/manic symptoms. He denies any audiovisual hallucinations and I can elicit no paranoia, no ideas of reference, no thought insertion or withdrawal or grandiosity or other delusional material. His thought process is linear. He denies any suicidal or homicidal ideation on direct questioning. He denies any side effects from medications and in particular denies any EPS or sexual side effects from his antipsychotics. He does report a history of delayed EPS from antipsychotics in the past and requests to take a prescription for Cogentin home for the management of this side effect should it occur. He has no physical complaints today. Weighing the acute, chronic, and protective factors and based on the available evidence, I accounts receivable analyst to a reasonable degree of medical certainty that the patient is at low imminent risk of harm to self or others from a mental illness and his level of function is adequate for outpatient care. The patient is requesting discharge from the inpatient psychiatric unit today. I will discharge him home in stable condition with psychiatric follow-up as arranged by counselor. Patient is also to follow-up with primary care and I have recommended that he follow-up with sleep medicine to resume treatment for his ANTOINE. I have counseled the patient regarding warning signs for need to return to the psychiatric emergency room is part of the general safety plan. Results Blood Pressure 150 / 76 Vital Signs Date Time Temp Pulse Resp B/P Pulse Ox O2 Delivery O2 Flow Rate FiO2 06/17/16 05:47 97.7 96 18 150/76 98 Item Value Date Time White Blood Count 10.6 TH/MM3 06/12/16 1140 Hemoglobin 18.6 GM/DL H 06/12/16 1140 Platelet Count 237 TH/MM3 06/12/16 1140 Sodium Level 140 MEQ/L 06/13/16 0640 Potassium Level 4.2 MEQ/L 06/13/16 0640 Chloride Level 104 MEQ/L 06/13/16 0640 Carbon Dioxide Level 28.3 MEQ/L 06/13/16 0640 Anion Gap 8 MEQ/L 06/13/16 0640 Blood Urea Nitrogen 14 MG/DL 06/13/16 0640 Creatinine 1.24 MG/DL 06/13/16 0640 Estimat Glomerular Filtration Rate 68 ML/MIN L 06/13/16 0640 Random Glucose 108 MG/DL H 06/13/16 0640 Hemoglobin A1c 5.6 % 06/12/16 1140 Aspartate Amino Transf (AST/SGOT) 25 U/L 06/12/16 1140 Alanine Aminotransferase (ALT/SGPT) 30 U/L 06/12/16 1140 Alkaline Phosphatase 119 U/L H 06/12/16 1140 Ethyl Alcohol Level 5 MG/DL 06/12/16 1140 Summary of Procedures None done Imaging None done Pending results at discharge: Yes (extended toxicology results are still pending) Medications # of Antipsychotic meds at D/C: 2 Appropriate >1 Antipsych meds?: 4 Approp Antipsych med options 1 - Minimum of three failed multiple trials of monotherapy. 2 - Documented plan to taper to monotherapy due to previous use of multiple meds OR cross-taper in progress at D/C. 3 - Documentation of augmentation of Clozapine. 4 - Justification other than those listed in allowable values 1-3, document here : Seroquel is being used temporarily for sleep. Goal would be to taper to monotherapy on an outpatient basis. Discharge Discharge Date: Jun 17, 2016 Discharge Diagnosis: (1) Schizophrenia Diagnosis: Principal (stabilized) ICD Code: F20.9 (2) History of substance abuse Diagnosis: Secondary (counseled to abstain from substance use) ICD Code: Z87.898 GAF on discharge is 55 Mental Status Exam at Disch Patient is casually dressed. He is fairly well groomed. He is awake and alert and oriented 3. No abnormal motor movements noted. No hand tremor, no cogwheeling, no hypomimia, no dystonia, no dyskinesia. Speech is within normal limits for rate, tone and volume. Language and fund of knowledge seemed average. Mood is improved versus admission and affect is only slightly blunted. Thought process linear. No loosening of associations. No evident delusions. Denies audiovisual hallucinations. Denies suicidal or homicidal ideation. Insight and judgment are fair. Pt Condition on Discharge: Stable Discharge Disposition: Discharge Home Discharge Instructions Diet Instructions: As Tolerated, No Restrictions Activities you can perform: Weight Bearing as Richie Scheduled Appointment: [facility] Appointment Date: Jun 23, 2016 Appointment Time: 3:30pm New Orders: BASIC METABOLIC PROF - 1 Week New Medications: Paliperidone Palmitate Inj (Invega Sustenna Inj) 117 Mg/0.75 Ml Inj 117 MG IM Q28D Next dose of Invega Sustenna due on 07/14/2016. Mental Health #1 Ref 0 VIAL Amlodipine (Norvasc) 10 Mg Tab 10 MG PO DAILY Blood Pressure Management Days 15 Ref 1 TAB Benztropine (Benztropine) 1 Mg Tab 1 MG PO Q12HR PRN EXTRA PYRAMIDAL SYMPTOMS #15 Ref 1 TAB Quetiapine (Quetiapine) 100 Mg Tab 100 MG PO HS PRN INSOMNIA Days 15 Ref 1 TAB Discharge Time <= 30 minutes Discharge/Advance Care Plan Health Problems: (1) Schizophrenia (2) History of substance abuse Goals to promote your health * To prevent worsening of your condition and complications * To maintain your health at the optimal level Directions to meet your goals Take your medications as prescribed Follow your dietary instruction Follow activity as directed Keep your appointments as scheduled Take your immunizations and boosters as scheduled If your symptoms worsen call your PCP, if no PCP go to Urgent Care Center or Emergency Room For 09/11 questions related to your inpatient stay or results of tests pending at discharge, please contact Dr. Dipak Oliveira at Smoking is Dangerous to Your Health. Avoid second hand smoking Problem Qualifiers (1) Schizophrenia: Qualified Code: F20.0 - Paranoid schizophrenia Dipak Oliveira MD Jun 17, 2016 09:38
--- NOTE | 2016-06-17 10:29 | HHI.PR ---
Addendum To [facility] Progress Not Reason for addendum: Additonal documentation (Patient with elevated BP and was started on norvasc. Dose was increased 10mg daily. Improving BP. Continue with medication. Follow up with PCP. Medically Stable from hospitalist standpoint. Discuss with Dr. Navarro. ) Bernadette Miranda Jun 17, 2016 10:29 am
--- NOTE | 2016-06-17 14:26 | HHI.PR ---
Subjective Remarks Follow up visit HTN. Pt. seen earlier today. He reports he is ready for discharge. Discuss medication for BP use. Declines use of BP meds. States he doesn't have any HTN problems and it is the BP cuff that makes his BP elevated. States "I don't even feel my heart rate, and my pulse is not fast" denies chest pain, palpitations, dizziness, headache, n/v/d. Objective Vitals Vital Signs Date Time Temp Pulse Resp B/P Pulse Ox O2 Delivery O2 Flow Rate FiO2 06/17/16 05:47 97.7 96 18 150/76 98 06/16/16 18:13 98.0 92 18 156/88 97 Result Diagram: 06/13/16 0640 Objective Remarks GENERAL: This is a well-nourished, well-developed patient, in no apparent distress. CARDIOVASCULAR: Regular rate and rhythm without murmurs, gallops, or rubs. RESPIRATORY: Clear to auscultation. Breath sounds equal bilaterally. No wheezes , rales, or rhonchi. GASTROINTESTINAL: Abdomen soft, non-tender, nondistended. Normal active bowel sounds MUSCULOSKELETAL: Extremities without clubbing, cyanosis, or edema. NEURO: Alert & Oriented x4 to person, place, time, situation. Moves all ext x4 A/P Assessment and Plan This is a 30-year-old male patient who denies prior medical history. Patient is currently in inpatient psychiatric center we have been consulted for assistance with management of hypertension. Patient reports he does not recall having noted problem with high blood pressure in the past and does not recall being on blood pressure medication. At time of evaluation patient appears calm. In review of prior charting patient has been agitated disruptive and in physical restraints at times. Elevated blood pressure- be related to agitation and anxiety or withdrawal DC Afrin as this can contribute to elevated blood pressure.Clonidine as needed for systolic blood pressure greater than 180 Norvasc 10 mg daily. Recommend to f/u with PCP. Pt. declines use as outpatient. Discuss risks of elevated BP. Understands risk. Schizophrenia managed per psychiatric team Polysubstance abuse patient counseled and encouraged to abstain Nicotine patch DVT prophylaxis patient is ambulatory is low risk Discussed plan of care with patient and nursing Bernadette Miranda Jun 17, 2016 14:26
[2016-06-19 12:27] LABS: BATH SALTS (MDPV) UR NEG (NEG); ECSTASY (MDMA) UR NEG (NEG); HEROIN (6-ACETYLMORPHINE) UR NEG (NEG); K2 SPICE UR NEG (NEG); OBMETHADONE UR NEG (NEG); OXYCODONE (PERCODAN) NEG (NEG); PHENCYCLIDINE URINE NEG (NEG)
[2016-07-06] MEDS ORDERED: COGE1INJ PO (17:39)
[2016-07-06] MEDS ORDERED: ABIL15TA2 PO (17:39)
[2016-07-06] MEDS ORDERED: SERO100T PO (17:40)
== END 2016-06-17 11:32 | disposition home or self-care (01) | DRG 885 ==
LOC: NEPJ 17:43 → NEDA 06-11 17:36 → H270 06-12 13:55
PROVIDERS: ADMIT Psychiatry & Neurology Psychiatry; ATTEND Psychiatry & Neurology Psychiatry
DX: F20.9 Schizophrenia, unspecified (principal); Z91.19 Patient's noncompliance with other medical treatment and regimen; I10 Essential (primary) hypertension; F17.200 Nicotine dependence, unspecified, uncomplicated; G47.33 Obstructive sleep apnea (adult) (pediatric)
CPT/HCPCS: 80048; 80053; 80061; 80307; 80320; 83036; 84443; 85025; 96372; 96374; 96375; G0481; J1630; J2060; J2426